=== PATIENT | male | born 1990 | race Caucasian/White ===

== ENCOUNTER 2016-08-30 17:49 | Emergency (ER) | payer BC, MEDICAID ==
[2016-08-30] MEDS ORDERED: LEVETIRACETAM 250 MG TAB ONE (19:56)
== END 2016-08-30 22:43 | disposition home or self-care (01) ==
LOC: ER 17:49
CPT/HCPCS: 36415; 70450; 72125; 80053; 80177; 85025; 85610; 85730; 93005